=== PATIENT | male | born 1970 | race Hispanic/Latino ===

== ENCOUNTER 2021-09-07 13:45 | Emergency (ER) | payer OTHER, SELFPAY ==
[2021-09-07] MEDS ORDERED: Xylocaine 1% w/ Epi 1:100K 10 ML VIAL ONE (14:00)
[2021-09-07] MEDS ORDERED: Bacitracin 1 PK ONE (14:26)
[2021-09-07] MEDS ORDERED: Boostrix 0.5 ML (Tdap) VIAL ONE (14:32)
== END 2021-09-07 15:01 | disposition home or self-care (01) ==
LOC: ERS 13:45
DX: S61.412A Laceration without foreign body of left hand, initial encounter (principal); W26.8XXA Contact with other sharp object(s), not elsewhere classified, initial encounter; Y92.69 Other specified industrial and construction area as the place of occurrence of the external cause; Z23 Encounter for immunization
CPT/HCPCS: 12001; 90471; 90715